=== PATIENT | male | born 1965 | race Caucasian/White ===

== ENCOUNTER → 2019-04-19 | Day surgery (SDC) | payer BC ==
[~2019-04-19] MED LIST: Acetaminophen/oxyCODONE 325-5 MG Tab PO ONE; Lactated Ringers 1,000 ML IV SCH; Lidocaine 1% with EPINEPHrine 1:100,000 20 ML MDV ONE; Ondansetron 4 MG/2 ML SDV IVPUSH PRN; Sodium Chloride 0.9% 10 ML Syringe FLUSH PRN; ceFAZolin 1 GM Vial IVPUSH ONE
--- NOTE | 2019-04-19 14:36 | OR ---
DATE OF OPERATION: 04/19/2019 PREOPERATIVE DIAGNOSIS: LEFT INGUINAL HERNIA. POSTOPERATIVE DIAGNOSIS: LEFT INGUINAL HERNIA. SURGEON: Eron Farley MD PROCEDURE: OPEN REPAIR OF LEFT INDIRECT INGUINAL HERNIA WITH MESH. ANESTHESIA: General. ESTIMATED BLOOD LOSS: Minimum. SPECIMEN: Hernia sac. INDICATIONS: This 53-year-old male has a moderate-size left inguinal hernia that is symptomatic. DESCRIPTION OF PROCEDURE: After adequate preparation, a transverse incision was made over the left groin and carried down to the external abdominal block. This was opened up to expose a large hernia in the inguinal canal. The cord structures and sac were dissected free up out of the inguinal canal. However, the sac was very difficult to dissect from the cord structures. I am not sure if the radiation he could of had from his prostate cancer has affected this area, but it was quite difficult to separate these structures out. The hernia sac could not be reduced by itself and I opened the sac. This showed that a portion of the sigmoid colon was also within the hernia sac wall and adherent to the inside. These adhesions needed to be taken down by sharp dissection to be able to reduce the colon back down into the abdomen. The hernia sac was then closed using an 0 prolene pursestring suture and the distal sac was amputated. The floor of the inguinal canal was covered with a piece of pre-cut keyhole mesh. This was then sewn to the inguinal ligament in a running fashion with an 0 Prolene and an interrupted Prolene for the upper flap of the mesh. The keyhole needed to be slightly enlarged to take into consideration the cord structures. This was however encircled around the cord and the tails sewn together with an 0 Prolene. The edge of the mesh was then underlaid under the external oblique. The external oblique was closed using interrupted 0 Vicryl sutures as was Marc's fascia, 4-0 Vicryl was used for the skin. BPB/MODL /[id number]
[2019-04-19] MEDS: Acetaminophen/oxyCODONE 325-5 MG Tab PO PRN (20:03)
[2019-04-20] MEDS: Acetaminophen/oxyCODONE 325-5 MG Tab PO PRN (04:49)
--- NOTE | 2019-04-20 08:45 | PCM.SN ---
- Free Text/Narrative Note: Moderate amount of pain. Dressing bloody. Minimal swelling. PO tolerated OK. VSS. Wants to go home. Percocet (#20) given for pain. FU as needed. Can discharge. No restrictions.
== END | disposition home or self-care (01) ==
LOC: CC.SDS 09:14
PROVIDERS: ATTEND Surgery
DX: K40.90 Unilateral inguinal hernia, without obstruction or gangrene, not specified as recurrent (principal); C61 Malignant neoplasm of prostate; N52.9 Male erectile dysfunction, unspecified; F17.220 Nicotine dependence, chewing tobacco, uncomplicated; Z88.1 Allergy status to other antibiotic agents; Z88.0 Allergy status to penicillin; Z79.899 Other long term (current) drug therapy
CPT/HCPCS: A9270-GY; J0690; J7120

== ENCOUNTER 2019-09-15 00:03 | Emergency (ER) | payer BC ==
--- NOTE | 2019-09-15 00:13 | EDM.PDOC ---
ED HPI GENERAL MEDICAL PROBLEM - General Chief Complaint: Laceration Stated Complaint: laceration Time Seen by Provider: 09/15/19 00:03 Source of Information: Reports: Patient History Limitations: Reports: No Limitations - History of Present Illness INITIAL COMMENTS - FREE TEXT/NARRATIVE: This patient is a 54 year old male that presents to the ER. The patient reports he has been drinking alcohol tonight. [place] He reports he was walking back to the house about 1 1/2 miles, then close to the home thinks he may have hit a tree branch. Patient denies falling. He does not recall if he had loc. He does report some nausea and did vomit while in route to the ER per patient. The patient is alert and oriented. Patient reports having a laceration. Onset: Today Onset Date: 09/15/19 Duration: Hour(s): (1) Location: Reports: Face Front/Back Body Image: 1 - laceration on eyelid Severity: Moderate Improves with: Reports: None Worsens with: Reports: None Associated Symptoms: Reports: Headaches, Nausea/Vomiting. Denies: Confusion, Chest Pain, Cough, cough w sputum, Diaphoresis, Fever/Chills, Loss of Appetite, Malaise, Rash, Seizure, Shortness of Breath, Syncope, Weakness Left Eyelid Pain Score (Numeric/FACES): 4 - Related Data Allergies Allergy/AdvReac Type Severity Reaction Status Date / Time clindamycin Allergy Cannot Verified 09/15/19 00:07 Remember Penicillins Allergy Cannot Verified 09/15/19 00:07 Remember Home Meds: Home Meds Amitriptyline [Elavil] 50 mg PO BEDTIME 04/18/19 [History] Past Medical History - Past Health History Medical/Surgical History: Denies Medical/Surgical History ED ROS GENERAL - Review of Systems Review Of Systems: See Below Constitutional: Reports: No Symptoms HEENT: Reports: Other (left eyelid pain at laceration). Denies: Eye Pain Respiratory: Reports: No Symptoms Cardiovascular: Reports: No Symptoms Endocrine: Reports: No Symptoms GI/Abdominal: Reports: Nausea, Vomiting. Denies: Abdominal Pain : Reports: No Symptoms Musculoskeletal: Reports: No Symptoms. Denies: Neck Pain Skin: Reports: Wound (laceration left eyelid) Neurological: Reports: Headache, Other (does not recall if loc or not) Psychiatric: Reports: No Symptoms Hematologic/Lymphatic: Reports: No Symptoms Immunologic: Reports: No Symptoms ED EXAM, SKIN/RASH Exam: See Below Exam Limited By: Intoxication General Appearance: Alert, WD/WN, No Apparent Distress Eye Exam: Bilateral Eye: EOMI, PERRL, Other (hyphema left eye. Left eye orbital swelling with eyelid laceration and eccyhmosis) Ears: Normal External Exam, Normal Canal, Hearing Grossly Normal, Normal TMs Nose: Normal Inspection, Normal Mucosa, No Blood Throat/Mouth: Normal Inspection, Normal Lips, Normal Teeth, Normal Gums, Normal Oropharynx, Normal Voice, No Airway Compromise Head: Facial Swelling (left orbital superior), Facial Tenderness (left superior orbit and left eyelid laceration site. ) Neck: Normal Inspection, Supple, Non-Tender, Full Range of Motion Respiratory/Chest: No Respiratory Distress, Lungs Clear, Normal Breath Sounds, No Accessory Muscle Use Cardiovascular: Normal Peripheral Pulses, Regular Rate, Rhythm, No Edema, No Gallop, No JVD, No Murmur, No Rub Peripheral Pulses: 2+: Radial (L), Radial (R), Posterior Tibial (L), Posterior Tibial (R) GI/Abdominal: Soft, Non-Tender Back Exam: Normal Inspection, Full Range of Motion. No: CVA Tenderness (L), CVA Tenderness (R), Decreased Range of Motion, Muscle Spasm, Paraspinal Tenderness, Vertebral Tenderness Extremities: Normal Inspection, Normal Range of Motion, Non-Tender, No Pedal Edema, Normal Capillary Refill Neurological: Alert, Oriented, Normal Cognition, Normal Gait, No Motor/Sensory Deficits, Other (negative gait ataxia) Psychiatric: Normal Affect, Normal Mood Skin: Warm, Dry, No Rash, Ecchymosis (left orbital superior), Wound/Incision ( left eyelid) Location, Skin: Face ED SKIN PROCEDURES - Laceration/Wound Repair Left Face Appearance: Superficial, Clean Distal NVT: Neuro & Vascular Intact, No Tendon Injury Anesthetic Type: Topical Skin Prep: Chlorhexidine (Hibiciens) Saline Irrigation (cc's): 30 Exploration/Debridement/Repair: Wound Explored, In a Bloodless Field, Explored to Base, Wound Margins Revised Closed with: Sutures Lac/Wound length In cm: 1 Suture Size: 5-0 # of Sutures: 2 Suture Type: Nylon Tetanus Status Addressed: Yes (UTD) Complications: No Complication Description: The laceration was on the eyelid, I had to go very shallow on stitch repair, making this high risk for busting of sutures. Course - Vital Signs Last Recorded V/S: Last Vital Signs Temp 96.7 F L 09/15/19 00:03 Pulse 79 09/15/19 00:03 Resp 16 09/15/19 00:03 BP 128/93 H 09/15/19 00:03 Pulse Ox 100 09/15/19 00:03 - Orders/Labs/Meds Orders: Active Orders 24 hr Category Date Time Status Cervical Spine wo Cont [CT] Stat Exams 09/15/19 00:07 Taken Head wo Cont [CT] Stat Exams 09/15/19 00:07 Taken Max Facial Sinus wo Cont [CT] Stat Exams 09/15/19 00:07 Taken Meds: Medications Discontinued Medications Generic Name Dose Route Start Last Admin Trade Name Freq PRN Reason Stop Dose Admin Lidocaine HCl 15 ml 09/15/19 00:28 09/15/19 00:31 Xylocaine 2% Viscous TOP 09/15/19 00:29 15 ml ONETIME ONE Administration - Radiology Interpretation Free Text/Narrative:: Head CT: No intracranial bleed, shift. No acute abnormality. Incidental chronic findings in report. Facial: Air in orbital region consistent with laceration. But the orbit is fine per radiologist. No other acute finding other than soft tissue. Cervical: No acute findings due to trauma, old degenerative. CT Results Date: 09/15/19 CT Results Time: 00:50 - Re-Assessments/Exams Free Text/Narrative Re-Assessment/Exam: 09/15/19 00:17 Patient states his Tetanus is UTD. 09/15/19 01:33 I discussed with this patient admission. I would like to admit this patient due to his head injury, +ETOH, nausea, vomiting. He was also a little dizzy with standing during the eye zeinab exam. I discussed with the patient delayed bleed and possible . I explained to him about doing neuro checks. I also wanted to order a banana bag for this patient, but he has also refused this. The patient has refused admission. He wants to go home. He understands all risks. He is alert and oriented. Due to his ETOH on board, the patient is coming to the ER to pick him up. I will discuss with her as well. 09/15/19 01:36 comes to bedside, I discussed with her patient head injury, symptoms, and his Positive ETOH. Explained risks of going home and delayed head bleed. She then discussed with patient, but patient told her he wants to go home and knows the risks. The reports they will go home against medical advice to admit. She is educated when to call 911 or to return with patient. During discharge AMA , patient rubbed his left eye, sutures were not evaluated again, but it is possible he popped them out. He was educated not to touch them. Departure - Departure Time of Disposition: 01:41 Disposition: Against Medical Advice 07 Condition: Fair Clinical Impression: Laceration, Hyphema of left eye Head injury Qualifiers: Encounter type: initial encounter Qualified Code(s): S09.90XA - Unspecified injury of head, initial encounter - Discharge Information *PRESCRIPTION DRUG MONITORING PROGRAM REVIEWED*: Not Applicable *COPY OF PRESCRIPTION DRUG MONITORING REPORT IN PATIENT JW: Not Applicable Instructions: Head Injury, Adult, Hyphema, Laceration Care, Adult, [id number] , Sutures, Roselyn, or Adhesive Wound Closure, [id number] Referrals: PCP,None [Primary Care Provider] - Forms: ED Department Discharge Additional Instructions: PLEASE RETURN TO THE ER FOR VOMITING, SEIZURE, UNABLE TO AWAKE, OR ANY CONCERNS : CALL 911 Followup with your primary care provider in 5 days for suture removal Wash sutures gently with soap and water, rinse, pat dry. Keep Clean Tylenol for pain See legal billing specialist Monday Sepsis Event Note - Evaluation Sepsis Screening Result: No Definite Risk - Focused Exam Vital Signs: Vital Signs Temp Pulse Resp BP Pulse Ox 09/15/19 00:03 96.7 F L 79 16 128/93 H 100 Date Exam was Performed: 09/15/19 Time Exam was Performed: 11:02 - My Orders Last 24 Hours: My Active Orders 09/15/19 00:07 Cervical Spine wo Cont [CT] Stat Head wo Cont [CT] Stat Max Facial Sinus wo Cont [CT] Stat - Assessment/Plan Last 24 Hours: My Active Orders 09/15/19 00:07 Cervical Spine wo Cont [CT] Stat Head wo Cont [CT] Stat Max Facial Sinus wo Cont [CT] Stat Plan: PLEASE SEE RN NOTE FOR PFSH
[2019-09-15] MEDS ORDERED: Lidocaine 2% Viscous Solution 15 ML Cup TOP ONE (00:28)
== END 2019-09-15 01:51 | disposition left against medical advice (07) ==
LOC: CC.ED 00:03
DX: S01.112A Laceration without foreign body of left eyelid and periocular area, initial encounter (principal); S05.12XA Contusion of eyeball and orbital tissues, left eye, initial encounter; S09.90XA Unspecified injury of head, initial encounter; Z88.1 Allergy status to other antibiotic agents; Z88.0 Allergy status to penicillin; Z79.899 Other long term (current) drug therapy; X58.XXXA Exposure to other specified factors, initial encounter
CPT/HCPCS: 12011; 70450; 70486; 72125; 99283-25; A9270-GY

== ENCOUNTER 2024-06-28 08:49 | Day surgery (SDC) | payer BC ==
[2024-06-28] MEDS: Lactated Ringers 1,000 ML IV SCH (09:15)
[2024-06-28] MEDS ORDERED: Ketamine 200 MG/20 ML MDV ONE (09:18)
[2024-06-28] MEDS ORDERED: Propofol 200 MG/20 ML SDV ONE ×2 (09:18)
[2024-06-28] MEDS ORDERED: Midazolam 1 MG/ML 2 ML SDV ONE (09:18)
[2024-06-28] MEDS ORDERED: fentaNYL 50 MCG/ML SDV ONE (09:18)
== END 2024-06-28 10:30 | disposition home or self-care (01) ==
LOC: CC.SDS 08:49
PROVIDERS: ATTEND Family Medicine
DX: Z12.11 Encounter for screening for malignant neoplasm of colon (principal); D12.3 Benign neoplasm of transverse colon; K62.1 Rectal polyp; K57.30 Diverticulosis of large intestine without perforation or abscess without bleeding; C61 Malignant neoplasm of prostate; G62.9 Polyneuropathy, unspecified; F17.200 Nicotine dependence, unspecified, uncomplicated
CPT/HCPCS: 00811; J2250; J2704; J3010; J3490; J7120